=== PATIENT | male | born 1955 | race Caucasian/White ===

== ENCOUNTER 2017-04-12 19:24 | Observation (INO) ==
--- NOTE | 2017-04-12 19:44 | Emergency Department Note ---
Disposition Clinical Impression: Dyspnea on exertion Chest pain Qualifiers: Chest pain type: unspecified Qualified Code(s): R07.9 - Chest pain, unspecified Disposition: Admitted As Inpatient Condition: Good General Adult HPI - General Chief complaint: ED Chest Pain Stated complaint: Chest pain jaw pain, ZURI Time Seen by Provider: 04/12/17 19:40 Source: patient Limitations: no limitations Nursing Notes Reviewed: Yes Vital Signs Reviewed: Yes - History of Present Illness HPI Narrative: 61-year-old male with past medical history only of hypertension. The only medications that he takes is valsartan and a daily aspirin. He reports that he is felt fatigued for the last 3 days. And then today around 5 PM he developed some substernal chest pressure with radiation into his neck and jaw. It is worse with exertion but is still present at rest. He denies feeling this before. He does not have a cardiac history. He has had a stress test a few years ago and has never had a heart catheterization. He denies having any fever or cough. No abdominal pain. No lower extremity edema. Pain Scale: 3 Consistency: intermittent Improves with: nothing Worsens with: nothing Associated symptoms: Reports: denies other symptoms Treatments Prior to Arrival: none - Related Data Home Medications Medication Instructions Recorded Confirmed Non-Formulary Medication 12/06/15 Previous Rx's Medication Instructions Recorded Polymyxn-B/Trimeth Opth Drops 1 drop BOTH EYES Q3H #10 ml 12/06/15 [Polytrim Opth Drops] predniSONE [Prednisone] 40 mg PO QAM #10 tablet 12/06/15 Allergies Allergy/AdvReac Type Severity Reaction Status Date / Time Penicillins Allergy Rash Verified 12/06/15 13:28 All systems ED: reviewed and negative except as stated. Constitutional: Denies: fever ENT ED: Denies: throat pain Cardiovascular: Reports: chest pain Past Medical History - Past Medical History Medical history: Reports: hyperlipidemia, hypertension Psychiatric history: Reports: anxiety - Social History Smoking Status: Never smoker Smokeless Tobacco Status: No Alcohol use: Reports: none Drug use: Reports: none Physical Exam - General Limitations: no limitations General appearance: alert, in no apparent distress - Head Head exam: atraumatic, normocephalic - Eye Eye exam: Present: normal appearance - ENT ENT exam: normal exam, normal oropharynx, mucous membranes moist - Neck Neck exam: Present: normal inspection, full ROM, trachea midline. Absent: tenderness, meningismus - Chest Chest inspection: Present: normal inspection, symmetric chest wall rise. Absent : tenderness - Respiratory Respiratory exam: Present: normal lung sounds bilaterally. Absent: respiratory distress, wheezes - Cardiovascular Cardiovascular exam: Present: regular rate, normal rhythm, normal heart sounds - Abdominal Exam Abdominal exam: Present: soft, Non-Tender, normal bowel sounds - Extremities Exam Extremities exam: Present: normal inspection, full ROM. Absent: tenderness - Back Exam Back exam: Present: normal inspection. Absent: CVA tenderness (R), CVA tenderness (L) - Neurological Exam Neurological exam: Present: alert, oriented X3. Absent: motor sensory deficit - Psychiatric Psychiatric exam: Present: normal affect, normal mood - Skin Skin exam: Present: warm, dry, intact, normal color. Absent: cyanosis, diaphoresis Course Course Narrative: His symptoms are worse with exertion but then do improve substantially when he rests. He did receive nitroglycerin which helped. EKG is not showing acute changes. He will be admitted to the hospital for chest pain rule out Vital Signs Temperature 98.4 F 04/12/17 19:25 Pulse Rate 92 04/12/17 19:25 Respiratory Rate 20 04/12/17 19:25 Blood Pressure 163/112 04/12/17 19:25 O2 Sat by Pulse Oximetry 97 04/12/17 19:25 Temperature 98.4 F 04/12/17 19:25 Pulse Rate 89 04/12/17 22:51 Respiratory Rate 20 04/12/17 22:51 Blood Pressure 166/98 04/12/17 22:51 O2 Sat by Pulse Oximetry 98 04/12/17 22:51 Oxygen Delivery Oxygen Delivery Room Air Medical Decision Making - Medical Records Medical records reviewed: Yes I reviewed the patient's medical records. - Lab Data Lab results reviewed: Yes I reviewed the patient's lab results. Result diagrams: 04/12/17 20:25 04/12/17 20:25 Lab Results 04/12/17 04/12/17 04/12/17 Range/Units 20:25 20:25 20:25 WBC (4.3-11.1) K/mcL RBC (4.19-5.50) M/mcL Hgb (12.9-16.9) g/dL Hct (37.5-50.1) % MCV (83.0-100.0) fL MCH (28.0-33.3) pg MCHC (31.6-35.5) g/dL RDW (11.5-14.5) % Plt Count (140-400) K/mcL MPV (9.4-12.4) fL Immature Gran % (0-4) % Seg Neutrophils % % Lymphocytes % % Monocytes % % Eosinophils % % Basophils % % Neutrophils # (1.6-8.9) K/mcL Lymphocytes # (0.6-4.6) K/mcL Monocytes # (0.0-1.3) K/mcL Eosinophils # (0.0-0.6) K/mcL Basophils # (0.0-0.2) K/mcL PT 10.7 (9.4-12.1) Seconds INR 1.0 APTT 34.2 (26.0-36.0) Seconds Sodium (136-145) mEq/L Potassium (3.5-4.5) mEq/L Chloride (98-109) mEq/L Carbon Dioxide (19-29) mEq/L BUN (8-26) mg/dL Creatinine (0.72-1.25) mg/dL Est GFR ( Amer) (> 60) Est GFR (Non-Af Amer) (> 60) BUN/Creatinine Ratio (6-26) Glucose (70-99) mg/dL Calculated Osmolality (280-300) Calcium (8.6-10.8) mg/dL Total Bilirubin 0.5 (0.2-1.2) mg/dL Direct Bilirubin 0.2 (0.0-0.5) mg/dL Indirect Bilirubin 0.3 (0.0-1.2) mg/dL AST 19 (5-34) Units/L ALT 15 (0-55) Units/L Alkaline Phosphatase 74 (38-126) Units/L Troponin I (0-0.03) ng/mL B-Natriuretic Peptide 37 (0-100) pg/mL Serum Total Protein 7.0 (6.0-8.3) g/dL Albumin 3.7 (3.5-5.0) g/dL Globulin 3.3 (2.4-3.5) g/dL Albumin/Globulin Ratio 1.1 (1.1-2.2) Lipase (8-78) Units/L 11/09/17 11/09/17 11/09/17 Range/Units 20:25 20:25 20:25 WBC 7.0 (4.3-11.1) K/mcL RBC 4.69 (4.19-5.50) M/mcL Hgb 14.5 (12.9-16.9) g/dL Hct 43.2 (37.5-50.1) % MCV 92.1 (83.0-100.0) fL MCH 30.9 (28.0-33.3) pg MCHC 33.6 (31.6-35.5) g/dL RDW 12.8 (11.5-14.5) % Plt Count 209 (140-400) K/mcL MPV 10.6 (9.4-12.4) fL Immature Gran % 0.3 (0-4) % Seg Neutrophils % 67.3 % Lymphocytes % 20.0 % Monocytes % 9.6 % Eosinophils % 2.4 % Basophils % 0.4 % Neutrophils # 4.7 (1.6-8.9) K/mcL Lymphocytes # 1.4 (0.6-4.6) K/mcL Monocytes # 0.7 (0.0-1.3) K/mcL Eosinophils # 0.2 (0.0-0.6) K/mcL Basophils # 0.0 (0.0-0.2) K/mcL PT (9.4-12.1) Seconds INR APTT (26.0-36.0) Seconds Sodium 138 (136-145) mEq/L Potassium 3.9 (3.5-4.5) mEq/L Chloride 105 (98-109) mEq/L Carbon Dioxide 24 (19-29) mEq/L BUN 12 (8-26) mg/dL Creatinine 0.94 (0.72-1.25) mg/dL Est GFR ( Amer) > 60 (> 60) Est GFR (Non-Af Amer) > 60 (> 60) BUN/Creatinine Ratio 13 (6-26) Glucose 97 (70-99) mg/dL Calculated Osmolality 286 (280-300) Calcium 10.1 (8.6-10.8) mg/dL Total Bilirubin (0.2-1.2) mg/dL Direct Bilirubin (0.0-0.5) mg/dL Indirect Bilirubin (0.0-1.2) mg/dL AST (5-34) Units/L ALT (0-55) Units/L Alkaline Phosphatase (38-126) Units/L Troponin I (0-0.03) ng/mL B-Natriuretic Peptide (0-100) pg/mL Serum Total Protein (6.0-8.3) g/dL Albumin (3.5-5.0) g/dL Globulin (2.4-3.5) g/dL Albumin/Globulin Ratio (1.1-2.2) Lipase 23 (8-78) Units/L 04/12/17 Range/Units 20:25 WBC (4.3-11.1) K/mcL RBC (4.19-5.50) M/mcL Hgb (12.9-16.9) g/dL Hct (37.5-50.1) % MCV (83.0-100.0) fL MCH (28.0-33.3) pg MCHC (31.6-35.5) g/dL RDW (11.5-14.5) % Plt Count (140-400) K/mcL MPV (9.4-12.4) fL Immature Gran % (0-4) % Seg Neutrophils % % Lymphocytes % % Monocytes % % Eosinophils % % Basophils % % Neutrophils # (1.6-8.9) K/mcL Lymphocytes # (0.6-4.6) K/mcL Monocytes # (0.0-1.3) K/mcL Eosinophils # (0.0-0.6) K/mcL Basophils # (0.0-0.2) K/mcL PT (9.4-12.1) Seconds INR APTT (26.0-36.0) Seconds Sodium (136-145) mEq/L Potassium (3.5-4.5) mEq/L Chloride (98-109) mEq/L Carbon Dioxide (19-29) mEq/L BUN (8-26) mg/dL Creatinine (0.72-1.25) mg/dL Est GFR ( Amer) (> 60) Est GFR (Non-Af Amer) (> 60) BUN/Creatinine Ratio (6-26) Glucose (70-99) mg/dL Calculated Osmolality (280-300) Calcium (8.6-10.8) mg/dL Total Bilirubin (0.2-1.2) mg/dL Direct Bilirubin (0.0-0.5) mg/dL Indirect Bilirubin (0.0-1.2) mg/dL AST (5-34) Units/L ALT (0-55) Units/L Alkaline Phosphatase (38-126) Units/L Troponin I 0.00 (0-0.03) ng/mL B-Natriuretic Peptide (0-100) pg/mL Serum Total Protein (6.0-8.3) g/dL Albumin (3.5-5.0) g/dL Globulin (2.4-3.5) g/dL Albumin/Globulin Ratio (1.1-2.2) Lipase (8-78) Units/L - Radiology Data Radiology results reviewed: Yes I reviewed the patient's radiology results. Chest X-Ray 04/12/17 19:40 IMPRESSION: Rounded infiltrate versus nodule in the left lung base with possible left pleural effusion. Recommend CT chest for clarification D/ / Luke Bowden MD / Luke Bowden MD Interpreting Provider: Luke Bowden MD Chest CT 04/12/17 21:21 IMPRESSION: No acute abnormality of the chest. No suspicious lung lesions identified to correspond to the nodular opacity identified on the prior radiograph. D/ / 04/12/2017 23:00:24 Rush Rider MD / hayden Interpreting Provider: Rush Rider MD - EKG Data EKG #1 EKG attestation: Yes I reviewed and interpreted this EKG. EKG shows normal: sinus rhythm Rate: normal Rhythm: NSR Taft/QRS: left axis deviation When compared to previous EKG there are: no significant changes ((axis slightly changed to left)) Interpretation: no acute changes Attestation Statement - Attestation Attestation: INahum MD, personally evaluated this patient and discussed their management with the resident physician. I reviewed the resident's note and agree with the documented findings, medical decision making, and plan of care. 61-year-old male presents to the emergency department with a complaint of chest and jaw pain since about 5 PM today. He describes the pain in his chest as just a dull aching discomfort in the substernal region. He complains primarily of pain in his right jaw which he describes as throbbing. The pain is worse with exertion and improved with rest. Some mild shortness of breath. No diaphoresis. Mild nausea. No prior history of any heart problems. Patient also complains of generalized weakness and fatigue for the past 3 days. No cough or fever. On examination patient is a well-developed obese male in no acute distress. He is alert and oriented 3. There is no cyanosis or diaphoresis. No swelling or tenderness over the right mandible. Neck is supple with full range of motion and no meningismus. No JVD. Chest is nontender to palpation. Breath sounds are clear and equal bilaterally. Heart regular rate and rhythm. Abdomen soft and nontender with normal bowel sounds. No CVA tenderness. Labs reviewed. No acute changes on EKG. Chest x-ray shows a round infiltrate versus nodule in the left base with possible left pleural effusion and CT was recommended. CT was obtained. It did not show any abnormality. The hospitalist, Dr. Solo, was consulted and accepted the admission of the patient.
[2017-04-12 20:32] LABS: Basophils % 0.4 %; Eosinophils # 0.2 K/mcL (0.0-0.6); Eosinophils % 2.4 %; Hematocrit 43.2 % (37.5-50.1); Hemoglobin 14.5 g/dL (12.9-16.9); Immature Granulocytes % 0.3 % (0-4); Lymphocytes # 1.4 K/mcL (0.6-4.6); Mean Corpuscular HGB Conc 33.6 g/dL (31.6-35.5); Mean Corpuscular Hemoglobin 30.9 pg (28.0-33.3); Mean Corpuscular Volume 92.1 fL (83.0-100.0); Mean Platelet Volume 10.6 fL (9.4-12.4); Monocytes # 0.7 K/mcL (0.0-1.3); Monocytes % 9.6 %; Neutrophils # 4.7 K/mcL (1.6-8.9); Platelet Count 209 K/mcL (140-400); Red Blood Count 4.69 M/mcL (4.19-5.50); Red Cell Distribution Width 12.8 % (11.5-14.5); Segmented Neutrophils % 67.3 %
[2017-04-12 20:39] LABS: Prothrombin Time 10.7 Seconds (9.4-12.1)
[2017-04-12 20:41] LABS: Activated Partial Thrombo Time 34.2 Seconds (26.0-36.0)
[2017-04-12 20:45] LABS: BUN/Creatinine Ratio 13 (6-26); Blood Urea Nitrogen 12 mg/dL (8-26); Calcium 10.1 mg/dL (8.6-10.8); Carbon Dioxide 24 mEq/L (19-29); Chloride 105 mEq/L (98-109); Glucose 97 mg/dL (70-99); Osmolality,Calculated 286 (280-300); Potassium 3.9 mEq/L (3.5-4.5); Sodium 138 mEq/L (136-145); eGFR For African Americans > 60 (> 60); eGFR For Non-African Americans > 60 (> 60)
[2017-04-12 20:47] LABS: Albumin 3.7 g/dL (3.5-5.0); Albumin/Globulin Ratio 1.1 (1.1-2.2); Bilirubin,Direct 0.2 mg/dL (0.0-0.5); Bilirubin,Indirect 0.3 mg/dL (0.0-1.2); Bilirubin,Total 0.5 mg/dL (0.2-1.2); Globulin 3.3 g/dL (2.4-3.5)
[2017-04-12] MEDS ORDERED: 0.9 % Sodium Chloride 1,000 ML IVC ONE (21:24)
[2017-04-12] MEDS ORDERED: Ketorolac 30 MG/ML VIAL IVP ONE (22:52)
[2017-04-12] MEDS ORDERED: Nitroglycerin 0.4 MG TAB.SUBL SL PRN (22:52)
[2017-04-12] MEDS ORDERED: Aspirin 325 MG TABLET PO ONE (23:00)
--- NOTE | 2017-04-13 00:32 | Internal Med History&Physical ---
Date of Encounter: 04/13/17 Time of Encounter: 00:30 Assessment and Plan (1) Chest pain Current visit: Yes Status: Acute Patient presents with retrosternal chest discomfort and jaw pain noticed that this chest discomfort would get worse with movement. Possibilities include acute coronary syndrome versus pericarditis. He has a low grade fever 99.2. Will check ESR. Serious troponin. Check echocardiogram. EKG is unremarkable. Appreciate cardiology input. Telemetry monitoring. Receive heparin and famotidine for DVT and peptic ulcer disease prophylaxis respectively. Qualifiers: Chest pain type: unspecified Qualified Code(s): R07.9 - Chest pain, unspecified Internal Medicine - H&P: HPI Chief complaint: chest pain History of present illness: Mr. Auguste is a 62 year old male with a history of hypertension presents of emergency room today with a main complaint of chest pain. Patient started experiencing this pain while he was holding a bag of groceries. He started experiencing retrosternal discomfort and jaw pain radiating to his ears however patient was still able to drive back home. It had lasted for several hours till he arrived to the emergency room. he noticed some improvement of pain with nitro. He notices that pain would get worse with any movement. Eventually this has been having chills and has not been feeling well the past 3 days. Temperature on arrival to the floor is 99.2. He denies any cough expectoration, diarrhea, urine symptoms confusion. As family member that is sick. No prior similar history. No known history of coronary artery disease. Past Med Surg Social Fam HX - Past Medical History Medical history: hyperlipidemia, hypertension Psychiatric history: anxiety - Past Surgical History Surgical History: no surgical history - Social History Smoking Status: Never smoker Smokeless Tobacco Status: No Alcohol use: none Drug use: none - Family History Father Hx Family Neurologic Disorders: Yes (CVA at age of 70) Mother Hx Family Neuromuscular Disorders: Yes (CVA in age of 70) Internal Medicine - H&P: Meds Non-Formulary Medication 12/06/15 [History] Polymyxn-B/Trimeth Opth Drops [Polytrim Opth Drops] 1 drop BOTH EYES Q3H #10 ml 12/06/15 [Rx] predniSONE [Prednisone] 40 mg PO QAM #10 tablet 12/06/15 [Rx] 3 Allergy/AdvReac Type Severity Reaction Status Date / Time Penicillins Allergy Rash Verified 12/06/15 13:28 All Systems PM: A 10-system review of systems was performed and is negative for pertinent findings except as documented above in the HPI. Review of systems: 10 point review of systems is negative except for HPI - Constitutional Vitals: Temp Pulse Resp BP Pulse Ox 99.2 F 89 16 152/90 95 04/12/17 23:50 04/12/17 23:50 04/12/17 23:50 04/12/17 23:50 04/12/17 23:50 Exam: General: Patient is A&O X3 Cardiac: normal S1, S2, no additional sounds or murmurs Chest: Clear to auscultation bilaterally Abdomen: soft, nontender, non distended, normal BS. Neuro: No focal deficits Internal Med - H&P Results - Labs CBC & Chem 7: 04/12/17 20:25 04/12/17 20:25
[2017-04-13 02:13] LABS: BUN/Creatinine Ratio 13 (6-26); Blood Urea Nitrogen 12 mg/dL (8-26); Calcium 9.7 mg/dL (8.6-10.8); Carbon Dioxide 24 mEq/L (19-29); Chloride 105 mEq/L (98-109); Glucose 129 mg/dL (70-99); Magnesium 1.9 mg/dL (1.6-2.6); Osmolality,Calculated 287 (280-300); Potassium 3.7 mEq/L (3.5-4.5); Sodium 138 mEq/L (136-145); eGFR For African Americans > 60 (> 60); eGFR For Non-African Americans > 60 (> 60)
[2017-04-13 02:14] LABS: Basophils # 0.1 K/mcL (0.0-0.2); Basophils % 0.7 %; Eosinophils # 0.1 K/mcL (0.0-0.6); Eosinophils % 1.1 %; Hematocrit 39.5 % (37.5-50.1); Hemoglobin 13.4 g/dL (12.9-16.9); Immature Granulocytes % 0.4 % (0-4); Lymphocytes # 1.1 K/mcL (0.6-4.6); Lymphocytes % 14.4 %; Mean Corpuscular HGB Conc 33.9 g/dL (31.6-35.5); Mean Corpuscular Hemoglobin 30.9 pg (28.0-33.3); Mean Corpuscular Volume 91.2 fL (83.0-100.0); Mean Platelet Volume 10.7 fL (9.4-12.4); Monocytes # 0.6 K/mcL (0.0-1.3); Monocytes % 7.6 %; Neutrophils # 5.8 K/mcL (1.6-8.9); Platelet Count 201 K/mcL (140-400); Red Blood Count 4.33 M/mcL (4.19-5.50); Red Cell Distribution Width 12.8 % (11.5-14.5); Segmented Neutrophils % 75.8 %
[2017-04-13] MEDS: *HR* Heparin 5,000 UNIT/ML VIAL SQ SCH ×3 (06:10→21:01)
[2017-04-13 08:00] LABS: Hemoglobin A1C 5.1 %
[2017-04-13 08:03] LABS: Chol/HDL Ratio 5.1 (0-4.9); Cholesterol 174 mg/dL (< 200); HDL Cholesterol 34 mg/dL (40-59); LDL Cholesterol,Calculated 112 mg/dL (0-99); Triglycerides 142 mg/dL (< 150)
[2017-04-13] MEDS: Famotidine 20 MG TABLET PO SCH ×2 (08:16→21:01)
[2017-04-13] MEDS: Aspirin 325 MG TABLET PO SCH (08:17)
[2017-04-13] MEDS ORDERED: Regadenoson 0.4 MG/5 ML SYRINGE IVP ONE ×2 (11:11→11:37)
[2017-04-13] MEDS ORDERED: Perflutren Lipid Microsphere 1.3 ML in 0.9 % Sodium Chloride 8.7 ML IVP ONE (11:12)
--- NOTE | 2017-04-13 18:41 | Electrocardiograph Report ---
[address] [address] Test Date: 2017-04-12 Pat Name: Hakan Auguste Department: 104 Room: 3B Gender: M Behavior Analyst: : 1955 Requested By: Nahum King Order Number: [id number] Reading MD: Tremayne Carrion MD Measurements Intervals Howard Rate: 84 P: 12 WY: 235 QRS: -40 QRSD: 116 T: 30 QT: 338 QTc: 379 Interpretive Statements SINUS RHYTHM WITH FIRST DEGREE AV BLOCK MARKED LEFT AXIS DEVIATION Poor R wave progression MINIMAL VOLTAGE CRITERIA FOR LVH, CONSIDER NORMAL VARIANT Electronically Signed On 04-13-2017 18:39:46 EST by Tremayne Carrion MD
--- NOTE | 2017-04-13 18:47 | Internal Med Progress Note ---
Date of Encounter: 04/13/17 Time of Encounter: 09:50 - Assessment and plan (1) Chest pain Current Visit: Yes Status: Acute Assessment and plan: Patient presents with retrosternal chest discomfort after leaving a store and right jaw pain, both of which get worse with movement. Possibilities include acute coronary syndrome versus pericarditis. He has a low grade fever 99.2. CRP was mildly elevated at 8. Troponins were negative 3 EKG is unremarkable. Cardiology consult, I appreciate their consultation recommendation. Echocardiogram with LVEF of 60%, mild LV ED no significant valvular dysfunction , there is a dilated ascending aorta measuring 4.2 cm. Will consult vascular. Stress test will be completed tomorrow. Vital signs are stable and within normal limits. He has remained afebrile, 99.2 was TMAX. Telemetry monitoring. Continue aspirin, patient is not on a statin. Qualifiers: Chest pain type: unspecified Qualified Code(s): R07.9 - Chest pain, unspecified (2) Dyspnea on exertion Current Visit: Yes Status: Acute Assessment and plan: Plan as above. (3) DVT prophylaxis Current Visit: Yes Status: Acute Assessment and plan: Heparin subcutaneous daily. (4) Pain in jaw not originating in temporomandibular joint Current Visit: Yes Status: Acute Assessment and plan: Uncertain etiology at this time. He reports chest pain with radiation up his neck and into his right jaw. He describes it as a bad toothache, however he is edentulous right lower gums. He does not appear to have any abscess, redness, or drainage. He denies TMJ disease, he denies known injury. It is not tender to palpation, although he does report increasing pain with movement and deep inspiration. Tylenol for pain X-ray facial bones ordered and pending. - Time Spent With Patient less than 15 minutes - Subjective Interval history: Patient was seen and assessed at bedside at 9:50 AM. His son was at bedside. Patient denies any chest pain, although he does report right jaw pain with movement, deep inspiration. There is no tenderness to palpation at TMJ or any point in the neck or jaw. Patient reports midsternal chest pain that has resolved. It did radiate up his neck into his right jaw. He describes it as a bad toothache, however he does not have any teeth in the right lower jaw. Patient reports he became short of breath when he was coming out of a store, that is with the chest pain and jaw pain started. Came to the emergency room due to concern for heart attack. He denies at the time of the event or now, headache, blurred vision, dizziness, nausea, vomiting, diaphoresis or abdominal pain. He denies near syncope or syncope. - Constitutional Vitals: Temp Pulse Resp BP Pulse Ox 97.6 F 87 16 151/86 95 04/13/17 14:49 04/13/17 14:49 04/13/17 14:49 04/13/17 14:49 04/13/17 14:49 General appearance: Present: cooperative, A&O X 3, pleasant - Head Head exam: Present: atraumatic, normal inspection, normocephalic - Eye Eye exam: Present: normal appearance, conjuntiva pink, sclera anicteric - Neck Neck exam general surgery: Present: supple, trachea midline. Absent: lymphadenopathy, tenderness - Respiratory Respiratory exam: Present: CTAB. Absent: accessory muscle use, chest wall tenderness, decreased breath sounds, rales, respiratory distress, rhonchi, wheezes - Cardiovascular Cardiovascular exam: Present: RRR, +S1, +S2. Absent: diastolic murmur, gallop, rubs, systolic murmur - GI/Abdominal GI/Abdominal exam: Present: normal bowel sounds, soft. Absent: distended, hepatomegaly, tenderness - Extremities Exam Extremities exam: Present: normal capillary refill, normal inspection, warm, radial pulses palpable and symmetrical. Absent: calf tenderness, cyanotic, joint swelling, pedal edema, tenderness - Neurological Exam Neurological exam: Present: alert, oriented X3, no focal deficits, strengths equal and symetr throughout. Absent: facial droop, speech deficit - Skin Skin exam: Present: dry, intact, normal color, warm. Absent: rash Internal Medicine: Result - Labs CBC & Chem 7: 04/13/17 01:48 04/13/17 01:48 Labs: Short CBC 04/13/17 Range/Units 01:48 WBC 7.6 (4.3-11.1) K/mcL Hgb 13.4 (12.9-16.9) g/dL Hct 39.5 (37.5-50.1) % Plt Count 201 (140-400) K/mcL Neutrophils # 5.8 (1.6-8.9) K/mcL [facility] 04/13/17 01:48 Sodium 138 Potassium 3.7 Chloride 105 Carbon Dioxide 24 BUN 12 Creatinine 0.93 Glucose 129 H Calcium 9.7 Cardiac Enzymes 04/13/17 04/13/17 Range/Units 01:48 07:59 Troponin I 0.00 0.01 (0-0.03) ng/mL - ABG Interpretation ABG results: PT/INR, D-dimer PT 10.7 Seconds (9.4-12.1) 04/12/17 20:25 - Impressions Impressions Echocardiogram 04/13/17 00:00 Impressions: LVEF 60%. Normal LV chamber size, wall thickness and function. Mild left ventricular diastolic dysfunction. Normal right ventricular structure and function. No evidence of pulmonary hypertension. No significant valvular dysfunction. Dilated ascending aorta measuring 4.2 cm. Left Ventricular Wall Motion: Rest Echo Findings All wall segments showed normal motion. Findings: Study Quality * Technically adequate exam. ECG Findings * Normal sinus rhythm. Left Ventricle * LVEF 60%. * Normal LV chamber size, wall thickness and function. * Mild left ventricular diastolic dysfunction. Right Ventricle * Normal right ventricular structure and function. Left Atrium * Moderately dilated left atrium. Right Atrium * Mildly dilated right atrium. Interatrial Septum * Interatrial septum not well evaluated. Aortic Valve * Aortic valve not well visualized. * No aortic regurgitation. * No aortic stenosis. Mitral Valve * Normal mitral valve structure and function. * No mitral regurgitation. * No mitral stenosis. Tricuspid Valve * Normal tricuspid valve structure and function. * Trace tricuspid regurgitation. * No evidence of pulmonary hypertension. Pulmonic Valve * Pulmonic valve not well visualized. * No pulmonic regurgitation. Aorta * Dilated ascending aorta measuring 4.2 cm. Pericardium * The pericardium appears normal. IVC * Normal IVC dimensions and inspiratory collapse. Pulmonary Artery * Normal visualized portions of the main pulmonary artery. Consult Discharge Plan - Plan Referrals: Candice Bacon MD [Primary Care Provider] - 04/17/17 1:45 pm
[2017-04-14] MEDS: Acetaminophen 325 MG TABLET PO PRN ×2 (04:59→14:22)
[2017-04-14] MEDS: *HR* Heparin 5,000 UNIT/ML VIAL SQ SCH ×2 (05:00→14:22)
[2017-04-14] MEDS: Aspirin 325 MG TABLET PO SCH (09:20)
[2017-04-14] MEDS: Famotidine 20 MG TABLET PO SCH (09:20)
[2017-04-14] MEDS ORDERED: Valsartan 80 MG TABLET PO SCH (10:45)
--- NOTE | 2017-04-14 13:50 | Discharge Summary ---
Date of Encounter: 04/14/17 Time of Encounter: 11:10 - Discharge Diagnosis (1) Chest pain Priority: Primary Status: Acute Comments: Patient presents with retrosternal chest discomfort after leaving a store and right jaw pain, both of which get worse with movement. Possibilities include acute coronary syndrome versus pericarditis. He had a low grade fever 99.2 on admission. CRP was mildly elevated at 8. Troponins were negative 3 EKG is unremarkable. Echocardiogram with LVEF of 60%, mild LV ED no significant valvular dysfunction , there is a dilated ascending aorta measuring 4.2 cm. Will refer pt for outpt follow up with vascular surgery. Stress test will be completed tomorrow. Vital signs are stable and within normal limits. He has remained afebrile, 99.2 was TMAX. Stress test negative for ischemia or infarct. Gated EF 70%. There was no evidence of TID, LV not dilated. Continue aspirin, patient is not on a statin. Cholesterol and trigs WNL, HDL Qualifiers: Chest pain type: unspecified Qualified Code(s): R07.9 - Chest pain, unspecified (2) Dyspnea on exertion Priority: Secondary Status: Resolved Comments: Pt denies FONSECA today. Lungs are clear throughout, no wheezing, rales, ronchi, no respiratory distress. (3) DVT prophylaxis Priority: Primary Status: Acute Comments: Heparin SQ daily (4) Pain in jaw not originating in temporomandibular joint Priority: Secondary Status: Acute Comments: Uncertain etiology at this time. He reports chest pain with radiation up his neck and into his right jaw. He describes it as a bad toothache and lasts for an extended period of time, up to 30-45, however he is edentulous right lower gums. He also reports pain when lying on his right side. He does not appear to have any abscess, redness, or drainage. He denies TMJ disease, he denies known injury. He denies jaw claudication or clicking of the jaw when he opens and closes his mouth or chews. It is not tender to palpation, although he does report increasing pain with movement and deep inspiration. Differentials include TMJ and TN, though suspicion for TN is low due to duration of pain and pt's description of pain. Facial bone x-ray is negative. Carotid Dopplers show non stenotic plaque bilaterally. Tylenol for pain Follow up with primary care with possible follow-up with oral surgeon. Face X-Ray 04/13/17 18:49 IMPRESSION: 1. No acute facial bone fracture. D/ / Ryan Wesley MD / Ryan Wesley MD Interpreting Provider: Ryan Wesley MD - Discharge Medications Home Medications: Valsartan 40 mg PO DAILY 04/13/17 [History] Allergies/Adverse Reactions: 3 Allergy/AdvReac Type Severity Reaction Status Date / Time Penicillins Allergy Rash Verified 04/13/17 06:50 Procedures/tests Complete & Pending: Procedures Performed prior 72 hours Category Date Time Status NM ella perf SPECT multi [NM] Routine Exams 04/13/17 08:45 Taken EV carotid duplex imaging BI Routine Y 04/14/17 11:55 Ordered EV echocardiogram w enhance Routine Y 04/13/17 Completed SP pharm nuclear stress Routine Y 04/13/17 08:45 Completed Date of admission: 04/12/17 23:10 Primary care physician: Candice Call Discharging clinician: Leighann Reyes Anticipated date of discharge: 04/14/17 - Patient Status Disposition: Home, Self-Care Condition: Good Functional capacity at discharge: independent ambulation Overall status at discharge: patient is back to baseline - Discharge Instructions Follow Up With: Candice Bacon MD [Primary Care Provider] - 04/17/17 1:45 pm Additional Instructions: Follow up with your PCP in the next week to 10 days for a follow up visit. Return to the ER as needed for any other problems or concerns, or if your symptoms return or worsen. Resume your normal home medications REsume your normal activities and diet as tolerated. - Diet and Activity Activity: increase activity as tolerated Diet: advance to your usual diet Interval History: Please see assessment and plan for hospital course. Hospital course: Mr. Auguste is a 62 year old male - Time Spent with Patient Total time spent providing and/or coordinating discharge services: Less than 30 minutes - Constitutional Vitals: Temp Pulse Resp BP Pulse Ox 97.4 F L 77 16 147/98 95 04/14/17 11:21 04/14/17 11:21 04/14/17 11:21 04/14/17 11:21 04/14/17 11:21 General appearance: Present: cooperative, A&O X 3, pleasant, answers questions appropriately - Head Head exam: Present: atraumatic, normal inspection, normocephalic - Eye Eye exam: Present: normal appearance, conjuntiva pink, sclera anicteric - Neck Neck exam general surgery: Present: normal inspection, supple, trachea midline. Absent: lymphadenopathy, tenderness - Respiratory Respiratory exam: Present: CTAB. Absent: accessory muscle use, rales, rhonchi, wheezes - Cardiovascular Cardiovascular exam: Present: RRR, +S1, +S2. Absent: diastolic murmur, gallop, rubs, systolic murmur - GI/Abdominal GI/Abdominal exam: Present: normal bowel sounds, soft, no peritoneal signs. Absent: distended, hepatomegaly, tenderness - Extremities Exam Extremities exam: Present: normal capillary refill, warm, radial pulses palpable and symmetrical. Absent: calf tenderness, cyanotic, pedal edema, tenderness - Neurological Exam Neurological exam: Present: alert, oriented X3, no focal deficits. Absent: facial droop, speech deficit - Skin Skin exam: Present: dry, intact, normal color, warm. Absent: rash
[2017-04-14 14:52] VITALS: BP 134/87
[2017-04-15 19:17] LABS: CK-MB (CK isoenzymes) 0 % (0-4); CK-MM (CK-isoenzymes) 100 % (96-100)
[2017-04-15 19:17] LABS: CK-MB (CK isoenzymes) 0 % (0-4); CK-MM (CK-isoenzymes) 100 % (96-100)
[2017-04-16 09:43] LABS: CK Total (Ck Isoenzymes) 66 U/L (20-200); CK-BB (CK isoenzymes) 0 % (0-0)
[2017-04-16 09:43] LABS: CK Total (Ck Isoenzymes) 62 U/L (20-200); CK-BB (CK isoenzymes) 0 % (0-0)
== END 2017-04-14 17:15 | disposition home or self-care (01) ==
LOC: EMEROO 19:24 → 3BNU 19:24
PROVIDERS: ADMIT Registered Nurse; ATTEND Registered Nurse